=== PATIENT | female | born 1965 | race Caucasian/White ===

== ENCOUNTER 2016-07-26 09:28 | Emergency (ER) | payer OTHER ==
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
[~2016-07-26 09:28] MED LIST: ANAPROX PO; BACITRACIN30 GM TOP; BACTRIM DS TABL1 TAB PO; BENZONATATE PO; CLEOCIN HCL300 M1 PO; CLEOCIN150 MG PO; CLINDAMYCIN HC300 MG PO; FLONASE 0.05% N16 G1; HYDROCODON-ACE1 EACH PO; HYDROCORTISONE28 GM TOP; IBUPROFEN600 MG PO; KEFLEX PO; LORTAB 5/500 TA1 TA1 PO; NO MEDICATIONS; PYRIDIUM PO; ROBITUSSIN DM118 ML PO; VICODIN 5/500 T1 TAB PO; VOLTAREN75 MG PO; ZITHROMAX PO
== END 2016-07-26 12:05 | disposition home or self-care (01) ==
LOC: CED 09:28
DX: S20.212A Contusion of left front wall of thorax, initial encounter (principal); E03.9 Hypothyroidism, unspecified; Z88.0 Allergy status to penicillin; Z88.5 Allergy status to narcotic agent; Y04.2XXA Assault by strike against or bumped into by another person, initial encounter; Y92.009 Unspecified place in unspecified non-institutional (private) residence as the place of occurrence of the external cause
CPT/HCPCS: 71101; 84703; 94010; 99283